=== PATIENT | male | born 1965 | race Two or more races ===

== ENCOUNTER 2022-12-10 10:41 | Inpatient (IN) | payer MEDICAID, OTHER ==
[2022-12-10] VITALS (8 sets, daily range): BP systolic 70–137; BP diastolic 42–58
[~2022-12-10] VITALS: Ht 172.7 cm; Wt 80.0 kg
[2022-12-10] MEDS ORDERED: NALOXONE HCL 1MG/ML 2ML SYRINGE ONE (10:57)
[2022-12-10] MEDS ORDERED: NALOXONE HCL 1MG/ML 2ML SYRINGE IV ONE ×2 (11:00→11:20)
[2022-12-10 11:10] LABS: Mean Corpuscular Hemoglobin 28.7 pg (28.0-32.0); Mean Corpuscular Hgb Conc. 31.1 g/dL (32.0-36.0); Mean Corpuscular Volume 92.3 fL (80.0-100.0); Red Cell Distribution Width 14.3 % (11.8-14.3); White Blood Cell 21.8 10^3/uL (4.4-10.8)
[2022-12-10 11:11] LABS: Hemoglobin 18.1 g/dL (13.5-17.5); Red Blood Cells 6.29 10^6/uL (4.5-5.90)
[2022-12-10 11:27] LABS: Albumin 4.2 g/dL (3.4-5.0); Calcium 9.3 mg/dL (8.5-10.1)
[2022-12-10] MEDS ORDERED: SODIUM CHLORIDE 0.9% 1,000 ML IV ONE ×3 (11:30→12:00)
[2022-12-10 11:32] LABS: Bilirubin, Total 1.1 mg/dL (0.2-1.0)
[2022-12-10] MEDS: SUCCINYLCHOLINE CHLORIDE 20 MG/ML 10ML VIAL IV ONE ×2 (11:42→12:40)
[2022-12-10] MEDS: ETOMIDATE (2MG/ML) 20ML VIAL IV ONE ×2 (11:42→12:40)
[2022-12-10 11:44] LABS: INR 1.16 (0.9-1.15); Partial Thromboplastin Time 30.4 sec (24.6-33.4)
[2022-12-10] MEDS: MIDAZOLAM DRIP 50 mg/50mL 50 ML IV SCH ×2 (11:50→12:50)
[2022-12-10 11:58] LABS: Hematocrit 58.1 % (41.0-53.0)
[2022-12-10 12:00] LABS: Basophils % (manual) 0 (0.0-2.0); Blast Cells 0; Eosinophils % (manual) 0 (0-7); Metamyelocytes % 0; Myelocytes % 0; Promyelocytes % 0; Reactive Lymphocytes 0
[2022-12-10] MEDS ORDERED: SODIUM BICARBONATE 8.4 % INJ 50ML VIAL IV ONE ×3 (12:00→20:30)
[2022-12-10] MEDS ORDERED: LORazepam 2MG/ML-1ML VIAL IV ONE (12:00)
[2022-12-10] MEDS ORDERED: THIAMINE 100mg/ml INJ (200mg/2ml VIAL) IV ONE (12:00)
[2022-12-10] MEDS ORDERED: cefTRIAXone 1GM/50ML D5W 50 ML IV ONE (12:00)
[2022-12-10] MEDS ORDERED: NOREPINEPHRINE 8 MG/250ML KIT 250 ML IV ONE (12:50)
[2022-12-10] MEDS: NOREPINEPHRINE 8 MG/250ML KIT 250 ML IV SCH ×2 (13:05→20:59)
[2022-12-10 13:54] LABS: Urine Bacteria FEW /hpf (None Seen); Urine Blood 1+ /uL (Negative); Urine Hyaline Cast FEW /lpf (0 - 2); Urine Specific Gravity 1.023 (1.001-1.035); Urine Sperm PRESENT /hpf (None Seen); Urine WBC 5 /hpf (0 - 3)
[2022-12-10 13:59] LABS: Alcohol, Urine < 3.0 mg/dL (0-10); Barbiturate Scree,Urine NEGATIVE (NEGATIVE); Benzodiazephine Screen, Urine NEGATIVE (NEGATIVE); Cannabinoid Screen, Urine NEGATIVE (NEGATIVE); Cocaine Screen, Urine POSITIVE (NEGATIVE); Opiate Scree,Urine NEGATIVE (NEGATIVE); Phencyclidine Screen, Urine NEGATIVE (NEGATIVE)
[2022-12-10 14:03] LABS: Amphetamine Screen, Urine NEGATIVE (NEGATIVE)
[2022-12-10 14:57] LABS: Lactic Acid w/Reflex 12.9 mmol/L (0.4-2.0)
[2022-12-10 15:40] LABS: Band Neutrophils % (manual) 17; Lymphocytes % (manual) 7 (10.0-50.0); Monocytes % (manual) 6 (0-12)
[2022-12-10] MEDS ORDERED: MORPHINE SULFATE INJ 2 MG/ml SYRG IV PRN (15:45)
[2022-12-10] MEDS ORDERED: NITROGLYCERIN 0.4 MG SL TAB SL PRN (15:45)
[2022-12-10] MEDS ORDERED: SODIUM CHLORIDE 0.9% 1,000 ML IV SCH (15:45)
[2022-12-10] MEDS ORDERED: NITROGLYCERIN 0.4MG/HR TOPICAL PATCH TD ONE (15:45)
[2022-12-10] MEDS ORDERED: ASPirin 325 MG TAB PO ONE (16:00)
[2022-12-10] MEDS ORDERED: DEXTROSE (50%) 50ML SYRG IV PRN (16:00)
[2022-12-10 16:15] LABS: Lipase 1777 U/L (73-393)
[2022-12-10 16:43] LABS: Calcium 7.4 mg/dL (8.5-10.1)
[2022-12-10] MEDS ORDERED: SODIUM BICARBONATE 50ML VIAL 150 ML in D5W 5% 1,000 ML IV SCH ×2 (16:45→18:00)
[2022-12-10 16:47] LABS: BUN/Creatinine Ratio 13.3
[2022-12-10 16:58] LABS: Amylase 1270 U/L (25-115)
[2022-12-10] MEDS ORDERED: ENOXAPARIN SOD 80 MG/0.8ML SYRINGE SC ONE (17:00)
[2022-12-10 17:38] LABS: Potassium 7.4 mmol/L (3.5-5.1)
[2022-12-10] MEDS ORDERED: InsuLIN REG 1unit/0.01ml Soln (100units/ml) IV ONE ×2 (17:45→18:00)
[2022-12-10] MEDS ORDERED: ALBUTEROL SULF 2.5 MG/0.5ML(0.5%) NEB SOLN NEB ONE (17:45)
[2022-12-10] MEDS ORDERED: DEXTROSE (50%) 50ML SYRG IV ONE ×2 (17:45→18:00)
[2022-12-10] MEDS: PIPERACILLIN-TAZOB 2.25GM 50 ML IV SCH (17:46)
[2022-12-10] MEDS ORDERED: ALBUTEROL MEDNEB 2.5 mg/3ml NEB ONE (17:51)
[2022-12-10] MEDS ORDERED: DOPamine 1600MCG/ML D5W 250 ML IV SCH (18:00)
[2022-12-10] MEDS ORDERED: CALCIUM GLUC 1,000mg/50ml-NS 50 ML IV ONE (18:00)
[2022-12-10] MEDS: ACCU-CHEK COMFORT CURVE STRIP VI SCH ×2 (18:04→23:47)
[2022-12-10] MEDS: InsuLIN REG 1unit/0.01ml Soln (100units/ml) SC SCH (18:10)
[2022-12-10 18:35] LABS: Lactic Acid w/Reflex 8.1 mmol/L (0.4-2.0)
[2022-12-10] MEDS: SODIUM BICARBONATE 50ML VIAL 150 ML in D5W 5% 1,000 ML IV SCH (18:48)
[2022-12-10] MEDS: SODIUM ZIRCONIUM CYCL 10 GM PAK GT SCH (18:56)
[2022-12-10] MEDS ORDERED: PHENYLEPHRINE IV 250 ML IV SCH (20:00)
[2022-12-10] MEDS ORDERED: ATORVASTATIN 20 MG TAB PO SCH (22:00)
[2022-12-10] MEDS ORDERED: IBUPROFEN 100MG/5ML ORAL SUSP 100 MG/5 ML UD GT PRN (23:30)
[2022-12-10] MEDS ORDERED: VASOPRESSIN 20 UNITS in SODIUM CHL 0.9% 99 ML IV SCH (23:30)
[2022-12-10] MEDS ORDERED: VASOPRESSIN 20 UNIT/ML ONE (23:33)
[2022-12-10] MEDS ORDERED: PHENYLEPHRINE HCL 10 MG/ML VL ONE (23:42)
[2022-12-10] MEDS ORDERED: PHENYLEPHRINE IV 250 ML IV ONE (23:42)
[2022-12-10] MEDS: PHENYLEPHRINE INJ 80 MG in SODIUM CHL 0.9% 242 ML IV SCH (23:47)
[2022-12-11] VITALS (96 sets, daily range): BP systolic 57–137; BP diastolic 34–118
[2022-12-11] MEDS: PIPERACILLIN-TAZOB 2.25GM 50 ML IV SCH ×2 (00:21→05:57)
[2022-12-11] MEDS: InsuLIN REG 1unit/0.01ml Soln (100units/ml) SC SCH ×4 (00:36→17:45)
[2022-12-11] MEDS ORDERED: SODIUM CHLORIDE 0.9% 500 ML IV ONE (02:30)
[2022-12-11] MEDS: SODIUM ZIRCONIUM CYCL 10 GM PAK GT SCH (02:51)
[2022-12-11] MEDS: SODIUM BICARBONATE 50ML VIAL 150 ML in D5W 5% 1,000 ML IV SCH ×3 (02:53→20:38)
[2022-12-11 04:22] LABS: Potassium 3.4 mmol/L (3.5-5.1)
[2022-12-11 04:27] LABS: Albumin 2.3 g/dL (3.4-5.0); BUN/Creatinine Ratio 12.7; Calcium 6.6 mg/dL (8.5-10.1)
[2022-12-11 04:36] LABS: Bilirubin, Total 1.1 mg/dL (0.2-1.0); Total Protein 4.7 g/dL (6.4-8.2)
[2022-12-11] MEDS: NOREPINEPHRINE 8 MG/250ML KIT 250 ML IV SCH (05:42)
[2022-12-11] MEDS ORDERED: EPINEPHrine HCL 250 ML IV SCH (05:45)
[2022-12-11] MEDS ORDERED: EPINEPHrine HCL 250 ML IV ONE (05:47)
[2022-12-11] MEDS: ACCU-CHEK COMFORT CURVE STRIP VI SCH ×3 (05:58→17:43)
[2022-12-11] MEDS ORDERED: fentaNYL Drip 2500mCg/250mlNS 250 ML IV ONE (06:56)
[2022-12-11] MEDS ORDERED: fentaNYL Drip 2500mCg/250mlNS 250 ML IV SCH (07:00)
[2022-12-11 07:21] LABS: Basophils # (auto) 0 10 ^3/uL (0-0.2); Basophils % (auto) 0.2 % (0.0-2.0); Eosinophils # (auto) 0 10 ^3/uL (0-0.8); Eosinophils % (auto) 0.1 % (0.0-7.0); Hematocrit 44.1 % (41.0-53.0); Hemoglobin 14.7 g/dL (13.5-17.5); Lymphocytes # (auto) 0.9 10 ^3/uL (0.4-5.4); Lymphocytes % (auto) 11.7 % (10.0-50.0); Mean Corpuscular Hemoglobin 29.8 pg (28.0-32.0); Mean Corpuscular Hgb Conc. 33.4 g/dL (32.0-36.0); Monocytes # (auto) 0.4 10 ^3/uL (0-1.3); Neutrophils # (auto) 6.6 10 ^3/uL (1.6-8.6); Nucleated Red Blood Cells % 0.6 %; Red Blood Cells 4.95 10^6/uL (4.5-5.90); Red Cell Distribution Width 13.7 % (11.8-14.3); White Blood Cell 7.9 10^3/uL (4.4-10.8)
[2022-12-11] MEDS ORDERED: PHENYLEPHRINE HCL 10 MG/ML VL ONE (07:37)
[2022-12-11] MEDS ORDERED: PHENYLEPHRINE IV 250 ML IV ONE (07:38)
[2022-12-11] MEDS: PHENYLEPHRINE INJ 80 MG in SODIUM CHL 0.9% 242 ML IV SCH ×2 (07:46→15:35)
[2022-12-11] MEDS ORDERED: DOPamine 1600MCG/ML D5W 250 ML IV SCH (08:15)
[2022-12-11] MEDS ORDERED: VASOPRESSIN 40 UNITS in D5W 5% 198 ML IV SCH ×2 (08:15→10:45)
[2022-12-11] MEDS ORDERED: ROCURONIUM 10MG/ML 10ML VIAL IV PRN (08:30)
[2022-12-11 09:14] LABS: INR 1.43 (0.9-1.15); Partial Thromboplastin Time 40.2 sec (24.6-33.4)
[2022-12-11 09:28] LABS: Calcium 6.3 mg/dL (8.5-10.1)
[2022-12-11] MEDS ORDERED: NOREPINEPHRINE BITARTRATE 32 MG in SODIUM CHL 0.9% 218 ML IV SCH (09:30)
[2022-12-11] MEDS ORDERED: EPINEPHrine HCL INJECTION 16 MG in D5W 5% 234 ML IV SCH (09:30)
[2022-12-11 09:39] LABS: Bilirubin, Total 1.1 mg/dL (0.2-1.0); Total Protein 4.5 g/dL (6.4-8.2)
[2022-12-11] MEDS ORDERED: PANTOPRAZOLE 40 MG/10 ML VIAL INJ IV SCH (10:00)
[2022-12-11] MEDS ORDERED: NITROGLYCERIN 0.4MG/HR TOPICAL PATCH TD SCH (10:00)
[2022-12-11] MEDS ORDERED: ASPirin 81 mg TAB PO SCH (10:00)
[2022-12-11] MEDS ORDERED: ENOXAPARIN SOD 40 MG/0.4 ML SYRINGE SC SCH (10:00)
[2022-12-11] MEDS ORDERED: ENOXAPARIN SOD 30 MG/0.3 ML SYRINGE SC SCH (10:00)
[2022-12-11] MEDS ORDERED: MEROPENEM 500MG IVPB 50 ML IV SCH (10:00)
[2022-12-11] MEDS: fentaNYL Drip 2500mCg/250mlNS 250 ML IV SCH ×2 (10:45→18:20)
[2022-12-11] MEDS: DOPamine 1600MCG/ML D5W 250 ML IV SCH ×3 (10:45→20:29)
[2022-12-11 10:55] LABS: BUN/Creatinine Ratio 12.3
[2022-12-11] MEDS: MIDAZOLAM DRIP 50 mg/50mL 50 ML IV SCH ×3 (11:17→20:31)
[2022-12-11] MEDS: VASOPRESSIN 20 UNITS in SODIUM CHL 0.9% 99 ML IV SCH ×3 (15:33→20:35)
[2022-12-12 17:30] LABS: Cholesterol 146 mg/dL (< 200); HDL Cholesterol 27 mg/dL (40-59); LDL Cholesterol 90 mg/dL (< 100); Triglycerides 193 mg/dL (< 150)
== END 2022-12-11 21:50 | DRG 720 ==
LOC: ER 10:41 → EDBD 10:41 → TELE 15:48 → EDBD 15:48 → ICU WEST 22:39
PROVIDERS: ADMIT Registered Nurse; ATTEND Internal Medicine Pulmonary Disease
PROC: 06HM33Z Insertion of Infusion Device into Right Femoral Vein, Percutaneous Approach (ICD-10-PCS; principal; 2022-12-10)
PROC: 5A1945Z Respiratory Ventilation, 24-96 Consecutive Hours (ICD-10-PCS; 2022-12-10)
PROC: 0BH17EZ Insertion of Endotracheal Airway into Trachea, Via Natural or Artificial Opening (ICD-10-PCS; 2022-12-10)
PROC: 30233N1 Transfusion of Nonautologous Red Blood Cells into Peripheral Vein, Percutaneous Approach (ICD-10-PCS; 2022-12-11)
DX: A41.9 Sepsis, unspecified organism (principal); J96.01 Acute respiratory failure with hypoxia; K72.00 Acute and subacute hepatic failure without coma; N17.0 Acute kidney failure with tubular necrosis; J69.0 Pneumonitis due to inhalation of food and vomit; G92.8 Other toxic encephalopathy; R65.21 Severe sepsis with septic shock; K92.2 Gastrointestinal hemorrhage, unspecified; I21.4 Non-ST elevation (NSTEMI) myocardial infarction; E87.0 Hyperosmolality and hypernatremia; I46.9 Cardiac arrest, cause unspecified; Z66 Do not resuscitate; E11.9 Type 2 diabetes mellitus without complications; E87.5 Hyperkalemia; E88.09 Other disorders of plasma-protein metabolism, not elsewhere classified; F14.10 Cocaine abuse, uncomplicated; F17.200 Nicotine dependence, unspecified, uncomplicated; I10 Essential (primary) hypertension; R79.89 Other specified abnormal findings of blood chemistry
CPT/HCPCS: 31500; 36415; 36556; 36600; 70450; 71045; 74018; 76604; 76700; 80048; 80053; 80061; 80307; 81001; 82150; 82805; 82962; 83036; 83605; 83690; 83735; 83880; 84132; 84443; 84484; 85007; 85027; 85610; 85730; 86850; 86900; 86901; 86920; 87040; 87070; 87077; 87081; 87086; 87088; 87186; 87205; 87426; 93005; 93306; 93886; 94002; 94003; 94644; 96361; 96365; 96375; 99291; C9113; G0378; J0171; J0330; J0696; J1815; J2185; J2250; J2543; J7060